=== PATIENT | male | born 1975 | race American Indian/Alaskan Native ===

== ENCOUNTER 2019-10-15 09:43 | Emergency (ER) | payer SELFPAY ==
[2019-10-15 09:49] VITALS: BP 150/106
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
[2019-10-15] MEDS ORDERED: KETOROLAC 30 MG/1 ML INJ IM ONE (10:14)
[2019-10-15] MEDS ORDERED: dexAMETHasone 20 MG/5 ML VIAL IM ONE (10:14)
== END 2019-10-15 10:50 | disposition home or self-care (01) ==
LOC: ED 09:43
DX: T65.91XA Toxic effect of unspecified substance, accidental (unintentional), initial encounter (principal); T30.4 Corrosion of unspecified body region, unspecified degree; F17.200 Nicotine dependence, unspecified, uncomplicated; Z79.899 Other long term (current) drug therapy; Y93.89 Activity, other specified; Y92.89 Other specified places as the place of occurrence of the external cause; Y99.0 Civilian activity done for income or pay
CPT/HCPCS: 96372; 99282; J1100; J1885